=== PATIENT | female | born 1940 | race African-American/Black ===

== ENCOUNTER 2017-04-12 15:24 | Outpatient (CLI) | payer MEDICARE, MEDICAID ==
[2017-04-12 21:43] LABS: Bilirubin Negative (Negative); Blood, Urine Negative (Negative); Clarity Clear (Clear); Glucose, Urine (Dipstick) Negative (Negative); Leukocyte Negative (Negative); Nitrite Negative (Negative); Protein, Urine (Dipstick) Trace mg/dL (Neg-Trace); Specific Gravity, Urine 1.015 (1.005-1.030); Urobilinogen 0.2 mg/dL (0.2-1.0); pH, Urine 7.5 (5.0-9.0)
[2017-04-12 22:00] LABS: Bacteria/HPF Rare-Few HPF (None Seen); Squamous Epithelial 0-3 HPF (0-3); WBC/HPF 0-3 HPF (0-3)
[2017-04-12 22:01] LABS: Crystals/HPF RARE AMORPH URATES HPF (Negative)
== END 2017-04-12 15:25 | disposition home or self-care (01) ==
LOC: NAVSJIPCSP 15:24
PROVIDERS: ATTEND Nurse Practitioner Family
DX: R39.9 Unspecified symptoms and signs involving the genitourinary system (principal)
CPT/HCPCS: 81001; 87086

== ENCOUNTER 2017-07-20 18:33 | Emergency (ER) | payer MEDICARE, OTHER ==
[2017-07-20 19:19] LABS: #Basophils 0.1 thou/uL (0.0-0.2); #Eosinphils 0.4 thou/uL (0.0-0.7); #Lymphocytes 2.2 thou/uL (1.20-3.40); #Monocytes 0.6 thou/uL (0.11-0.59); #Neutrophils 3.4 thou/uL (1.40-6.50); %Basophils 1.9 % (0.0-1.0); %Eosinophils 5.3 % (0.0-10.0); %Lymphocytes 33.1 % (21.0-51.0); %Monocytes 9.5 % (0.0-10.0); %Neutrophils 50.1 % (42.0-75.0); Hemoglobin 14.4 g/dL (12.0-16.0); Mean Corpuscular HGB CONC 29.7 g/dL (32.0-36.0); Mean Corpuscular Hemoglobin 24.5 pg (27.0-31.0); Mean Corpuscular Volume 82.3 fl (81.0-99.0); Platelet Count 174 thou/uL (130-400); Red Blood Cell (RBC) Count 5.89 mill/uL (4.20-5.40); White Blood Cell (WBC) Count 6.7 thou/uL (4.8-10.8)
[2017-07-20 19:29] LABS: ALT (SGPT) 14 U/L (8-55); AST (SGOT) 15 U/L (5-34); Albumin 3.8 g/dL (3.4-4.8); Alkaline Phosphatase 76 U/L (40-150); Anion Gap 14 mmol/L (10-20); BUN (Urea Nitrogen) 10 mg/dL (9.8-20.1); Bilirubin, Total 0.4 mg/dL (0.2-1.2); CK (CPK) 33 U/L (29-168); Calc. Creatinine Clearance 0 mL/min (70-130); Calcium 9.6 mg/dL (7.8-10.44); Carbon Dioxide 33 mmol/L (23-31); Chloride 95 mmol/L (98-107); Estimated GFR-MDRD 82; Globulin 4.5 g/dL (2.4-3.5); Glucose 103 mg/dL (83-110); Potassium 3.3 mmol/L (3.5-5.1); Protein, Total 8.3 g/dL (6.0-8.3); Sodium 139 mmol/L (136-145)
[2017-07-20 19:30] LABS: CKMB 0.5 ng/mL (0-6.6); Troponin I Less than 0.010 ng/mL (< 0.028)
--- NOTE | 2017-07-20 20:36 | RAD ---
CHEST ONE VIEW 07/20/17 HISTORY: Elevated blood pressure. COMPARISON: Chest two view from 2016. FINDINGS: Heart size is enlarged. The lungs are slightly hypoinflated. No pneumothorax or large effusion. Mild ectasia of the aorta. 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 IMPRESSION: Mild cardiomegaly and ectasia of the aorta. POS: [facility]
== END 2017-07-20 20:16 | disposition home or self-care (01) ==
LOC: NAV ERS 18:33
DX: I10 Essential (primary) hypertension (principal); E11.9 Type 2 diabetes mellitus without complications; E78.5 Hyperlipidemia, unspecified; Z87.891 Personal history of nicotine dependence; Z79.84 Long term (current) use of oral hypoglycemic drugs; Z79.899 Other long term (current) drug therapy
CPT/HCPCS: 71010; 80053; 82553; 83880; 84484; 85025; 93005

== ENCOUNTER 2017-08-15 16:44 | Outpatient (CLI) | payer MEDICARE, OTHER ==
[2017-08-15 17:37] LABS: Hemoglobin A1c 6.2 % (4.0-6.0)
[2017-08-15 17:43] LABS: ALT (SGPT) 11 U/L (8-55); AST (SGOT) 14 U/L (5-34); Albumin 3.9 g/dL (3.4-4.8); Alkaline Phosphatase 76 U/L (40-150); Anion Gap 16 mmol/L (10-20); BUN (Urea Nitrogen) 12 mg/dL (9.8-20.1); Bilirubin, Direct 0.2 mg/dL (0.1-0.3); Bilirubin, Total 0.4 mg/dL (0.2-1.2); Calc. Creatinine Clearance 0 mL/min (70-130); Calcium 10.3 mg/dL (7.8-10.44); Carbon Dioxide 33 mmol/L (23-31); Cardiac Risk 4.9 (Less than 4.5); Chloride 94 mmol/L (98-107); Cholesterol 260 mg/dl (< 200 Desired); Estimated GFR-MDRD Greater than 90; Glucose 93 mg/dL (83-110); HDL Cholesterol 53 mg/dL (>60 Neg Risk); LDL Cholesterol, Calculated 182 mg/dL; Potassium 4.3 mmol/L (3.5-5.1); Protein, Total 8.2 g/dL (6.0-8.3); Sodium 139 mmol/L (136-145); Triglycerides 126 mg/dL (Less than 150)
[2017-08-15 19:23] LABS: #Basophils 0.1 thou/uL (0.0-0.2); #Eosinphils 0.2 thou/uL (0.0-0.7); #Lymphocytes 2.2 thou/uL (1.20-3.40); #Monocytes 0.7 thou/uL (0.11-0.59); #Neutrophils 3.5 thou/uL (1.40-6.50); %Basophils 1.2 % (0.0-1.0); %Eosinophils 2.6 % (0.0-10.0); %Lymphocytes 32.7 % (21.0-51.0); %Monocytes 11.1 % (0.0-10.0); %Neutrophils 52.4 % (42.0-75.0); Hemoglobin 14.7 g/dL (12.0-16.0); Hypochromia SLIGHT = 6-15 cells (100X) (0-5/hpf); MDiff Complete? YES; Mean Corpuscular HGB CONC 29.6 g/dL (32.0-36.0); Mean Corpuscular Hemoglobin 24.7 pg (27.0-31.0); Mean Corpuscular Volume 83.7 fl (81.0-99.0); Mean Platelet Volume 10.1 fL (7.4-10.4); PLT Morphology Comment Appears Adequate; Platelet Count 167 thou/uL (130-400); RBC Distribution Width 15.8 % (11.5-14.5); Red Blood Cell (RBC) Count 5.93 mill/uL (4.20-5.40); White Blood Cell (WBC) Count 6.6 thou/uL (4.8-10.8)
== END 2017-08-15 16:45 | disposition home or self-care (01) ==
LOC: NAVSJIPCSP 16:44
PROVIDERS: ATTEND Family Medicine
DX: E78.2 Mixed hyperlipidemia (principal); E11.65 Type 2 diabetes mellitus with hyperglycemia; I10 Essential (primary) hypertension; Z79.899 Other long term (current) drug therapy
CPT/HCPCS: 36415; 80048; 80061; 80076; 83036; 84443; 85025

== ENCOUNTER 2018-02-04 10:20 | Emergency (ER) | payer MEDICARE, MEDICAID ==
[~2018-02-04 10:20] MED LIST: Iopamidol 370 76% 100 ML VIAL ONE
[2018-02-04 11:28] LABS: CKMB 0.2 ng/mL (0-6.6); Troponin I Less than 0.010 ng/mL (< 0.028)
[2018-02-04 11:35] LABS: #Basophils 0.1 thou/uL (0.0-0.2); #Eosinphils 0.1 thou/uL (0.0-0.7); #Lymphocytes 1.4 thou/uL (1.20-3.40); #Monocytes 0.6 thou/uL (0.11-0.59); #Neutrophils 6.4 thou/uL (1.40-6.50); %Basophils 1.6 % (0.0-1.0); %Eosinophils 1.3 % (0.0-10.0); %Lymphocytes 16.3 % (21.0-51.0); %Monocytes 6.5 % (0.0-10.0); %Neutrophils 74.3 % (42.0-75.0); Hemoglobin 14.1 g/dL (12.0-16.0); Mean Corpuscular HGB CONC 31.2 g/dL (32.0-36.0); Mean Corpuscular Hemoglobin 25.3 pg (27.0-31.0); Mean Corpuscular Volume 81.1 fl (81.0-99.0); Mean Platelet Volume 10.7 fL (7.4-10.4); Platelet Count 139 thou/uL (130-400); RBC Distribution Width 14.3 % (11.5-14.5); Red Blood Cell (RBC) Count 5.56 mill/uL (4.20-5.40); White Blood Cell (WBC) Count 8.6 thou/uL (4.8-10.8)
[2018-02-04 11:56] LABS: ALT (SGPT) 12 U/L (8-55); AST (SGOT) 16 U/L (5-34); Albumin 3.5 g/dL (3.4-4.8); Alkaline Phosphatase 66 U/L (40-150); Anion Gap 13 mmol/L (10-20); BUN (Urea Nitrogen) 13 mg/dL (9.8-20.1); Bilirubin, Total 0.6 mg/dL (0.2-1.2); Calc. Creatinine Clearance 0 mL/min (70-130); Calcium 9.4 mg/dL (7.8-10.44); Carbon Dioxide 34 mmol/L (23-31); Chloride 89 mmol/L (98-107); Estimated GFR-MDRD Greater than 90; Globulin 4.3 g/dL (2.4-3.5); Glucose 147 mg/dL (83-110); Potassium 3.2 mmol/L (3.5-5.1); Protein, Total 7.8 g/dL (6.0-8.3); Sodium 133 mmol/L (136-145)
[2018-02-04] MEDS ORDERED: Potassium Chloride 20 MEQ TAB ONE (12:16)
[2018-02-04] MEDS ORDERED: cefTRIAXone\\ROCEPHIN 1 GM VIAL ONE (12:48)
[2018-02-04] MEDS ORDERED: Sodium Chloride 0.9% 100 ML ONE (12:48)
[2018-02-04] MEDS ORDERED: Sodium Chloride 0.9% 250 ML 250 ML ONE (13:31)
[2018-02-04] MEDS ORDERED: Azithromycin 500 MG VIAL ONE (13:31)
--- NOTE | 2018-02-04 14:18 | RAD ---
AP VIEW CHEST: HISTORY: Cough, congestion, wheezing. FINDINGS: AP view chest is obtained on 02/04/18. Comparison is made to previous exam from 07/20/17. AP view chest demonstrates ectasia of the aorta. Pulmonary vascular congestion is seen. Mild cardio megaly is seen. No evidence of effusions, pneumonia, or pneumothorax is seen. IMPRESSION: Cardiomegaly as well as ectasia of the aorta. POS: [facility]
--- NOTE | 2018-02-04 14:44 | CT ---
CTA CHEST: History: Dyspnea. Cough. Shortness of breath. Technique: Contrast enhanced CTA of the chest was performed. 2D and 3D reconstructed images were perf ormed on an independent 3D workstation. FINDINGS: Images demonstrate fusiform dilatation of the ascending aorta with an ascending aorta at its proximal aspect having a diameter of up to 4.5 x 4.7 cm. There is calcified and noncalcified plaques through the aortic arch and descending aorta. Descending aorta is also ectatic. No evidence of filling defect seen in the pulmonary arteries to suggest pulmonary emboli. There is an area of lung consolidation in the right middle lobe as well as the right lower lobe kiki tible with areas of right middle and lower lobe pneumonia. Follow up radiographs to resolution recomm ended. The patient's radiograph failed to visualize these areas due to patient body habitus. It may b e worthwhile to consider follow up CT to confirm resolution after appropriate therapy. IMPRESSION: 1. Right middle lobe and right lower lobe areas of opacities seen on CT. Findings concerning for pneu monia. These areas are not visible on the portable radiograph. POS: [facility]
== END 2018-02-04 16:48 | disposition short-term general hospital (02) ==
LOC: NAV ERS 10:20
DX: J18.9 Pneumonia, unspecified organism (principal); E87.6 Hypokalemia; E78.5 Hyperlipidemia, unspecified; I10 Essential (primary) hypertension; Z87.891 Personal history of nicotine dependence; Z79.84 Long term (current) use of oral hypoglycemic drugs; Z79.899 Other long term (current) drug therapy
CPT/HCPCS: 71045; 71275; 80053; 82553; 83880; 84484; 85025; 85379; 87040; 93005; 94640; 94760; 96365; 96367; J0456; J0696; J7050; J7620

== ENCOUNTER 2019-04-23 23:18 | Emergency (ER) | payer MEDICARE, MEDICAID ==
[~2019-04-23 23:18] MED LIST changes: +Amiodarone 150 MG/3 ML VIAL ONE; +EPINEPHrine 1 MG/10 ML Abboject SYRINGE ONE; -Iopamidol 370 76% 100 ML VIAL ONE; +Sodium Bicarb 50 MEQ/50 ML Abboject 8.4% SYRINGE ONE; +Tenecteplase 50 MG - STEMI KIT ONE
== END 2019-04-23 23:59 | disposition expired ==
LOC: NAV ERS 23:18
DX: I46.9 Cardiac arrest, cause unspecified (principal)
CPT/HCPCS: 31500; 36680; 82962; 92950; 99285; J3101; 36416; J0171; J0282